=== PATIENT | male | born 1960 | race Caucasian/White ===

== ENCOUNTER 2021-06-12 13:07 | Emergency (ER) | payer BC ==
[~2021-06-12] VITALS: Ht 188 cm; Wt 81.4 kg
--- NOTE | 2021-06-12 13:52 | PHYS DOC ---
Past History Additional Past Medical Histor: LUMBAR BACK ISSUES Past Surgical History: Other Additional Past Surgical Histo: LOWER BACK, BILATERAL ELBOW, LEFT SHOULDER General Adult EDM: Chief Complaint: LOWER BACK PAIN OR INJURY HPI: HPI: Patient is a 61-year-old male who presents to the ER today for lumbar back pain that started this morning. Patient reports he was swinging a baseball bat yesterday and he was riding on a 4 luciano day before he is unsure if he strained his back or injured his back. Patient rates his pain 10 out of 10. He reports that it radiates down to his bilateral legs and to his knees. Patient had no treatment prior to arrival. Patient does have a history of chronic low back pain. Patient denies loss of bowel/bladder, saddle anesthesias, numbness and tingling in extremities. Patient is able to bear weight and ambulate with steady gait. Review of Systems: Review of Systems: 14 body systems of the review of systems have been reviewed. See HPI for pertinent positive and negative responses, otherwise all other systems are negative, nonpertinent or noncontributory Current Medications: Current Meds: Current Medications Medications (Trade) Dose Ordered Sig/Didier Start Time Stop Time Status Last Admin Dose Admin Cyclobenzaprine HCl (Flexeril) 10 mg 1X ONCE 06/12/21 14:00 06/12/21 14:01 UNV Ketorolac Tromethamine (Toradol Im) 60 mg 1X ONCE 06/12/21 14:00 06/12/21 14:01 UNV Allergies: Allergies: Allergies Coded Allergies Type Severity Reaction Last Updated Verified No Known Drug Allergies 06/12/21 No Physical Exam: PE: Constitutional: Well developed, well nourished, no acute distress, non-toxic appearance. [] HENT: Normocephalic, atraumatic Eyes: PERRL, conjunctiva normal, no discharge. [] Neck: Normal range of motion, no bony spinal tenderness, supple, no stridor. [] Cardiovascular: Normal peripheral perfusion Lungs & Thorax: Normal work of breathing, no tachypnea Abdomen: Bowel sounds normal, soft, no tenderness, no masses, no pulsatile masses. [] Skin: Warm, dry, no erythema, no rash. [] Back: No bony spinal tenderness, normal range of motion, positive left straight leg raise, bilateral lumbar paraspinal tenderness with palpation Extremities: No tenderness, no cyanosis, no clubbing, ROM intact, no edema. [] Neurologic: Alert and oriented X 3, normal motor function, normal sensory function, no focal deficits noted. [] Psychologic: Affect normal, judgement normal, mood normal. [] Current Patient Data: Vital Signs: Vital Signs Date Time Temp Pulse Resp B/P (MAP) Pulse Ox O2 Delivery O2 Flow Rate FiO2 06/12/21 13:20 98.4 79 20 112/78 97 Room Air EKG: EKG: [] Radiology/Procedures: Radiology/Procedures: PROCEDURE: LUMBAR SPINE 2-3V XR LUMBAR SPINE 2-3V History: Reason: low back pain / Spl. Instructions: / History: Technique: 3 views lumbar spine. Comparison: None. Findings: Anterior stabilization and interbody fusion L5-S1. Normal vertebral body height and alignment. No acute fracture. Degenerative disc changes most prominent L3-L4 and L4-5. Vascular calcifications. Impression: 1. No acute osseous abnormality. 2. Postoperative changes L5-S1. Electronically signed by: Cristopher Lozano DO (06/12/2021 3:01 PM) [id number] DICTATED AND SIGNED BY: CRISTOPHER LOZANO DO DATE: 06/12/21 1500 CC: EMERGENCY,DEPARTMENT; EMILY [employer]IRE[employer]NER ~MTH0 0 Heart Score: C/O Chest Pain: No Risk Factors: Risk Factors: DM, Current or recent (<one month) smoker, HTN, HLP, family history of CAD, obesity. Risk Scores: Score 0 - 3: 2.5% MACE over next 6 weeks - Discharge Home Score 4 - 6: 20.3% MACE over next 6 weeks - Admit for Clinical Observation Score 7 - 10: 72.7% MACE over next 6 weeks - Early Invasive Strategies Course & Med Decision Making: Course & Med Decision Making Pertinent Labs and Imaging studies reviewed. (See chart for details) Patient is a 61-year-old male being seen in the ER for lumbar back pain that started today. Imaging was performed of his lumbar spine in the ER and was negative for any acute findings. Patient does have a history of chronic low back pain. Patient's pain treated in the ER. Patient reports that his pain has been relieved after treatment in the ER. I discussed with patient all findings and diagnostic testing as well as the need to follow-up with PCP for further evaluation and treatment or return to the ER if any new or worsening symptoms. Strict return precautions were also discussed at length. Patient voiced understanding and agreement with the plan. Patient is hemodynamically stable at the time of disposition. Chris Disclaimer: Chris Disclaimer: This electronic medical record was generated, in whole or in part, using a voice recognition dictation system. Departure Departure: Impression: Primary Impression: Low back pain Qualified Codes: M54.41 - Lumbago with sciatica, right side Disposition: HOME / SELF CARE / HOMELESS Condition: GOOD Patient Instructions: Back Exercises, [id number], Back Pain, Adult Additional Instructions: You were seen in the ER today for low back pain. The images of your x-ray were negative for any acute findings. Your pain is most likely due to a muscle strain and should improve with ibuprofen, stretching, and activity which does not improve you should follow up with your primary care doctor. You can take Tylenol/ibuprofen for pain. You were prescribed a prescription for a muscle relaxer. Please take this as directed. This medication may cause drowsiness of caution taking it. Please not take this medication when you need to be alert and do not take with alcohol. You should return to the ER if you develop worsening pain, fever, numbness, tingling, weakness, bowel or bladder problems, or any new or concerning symptoms. EMERGENCY DEPARTMENT GENERAL DISCHARGE INSTRUCTIONS Thank you for coming to [facility] (ED) today and trusting us with you care. We trust that you had a positivie experience in our Emergency Department. If you wish to speak to the department management, you may call the director at [phone]. YOUR FOLLOW UP INSTRUCTIONS ARE FOLLOWS: 1. Do you have a private Doctor? If you do not have a private doctor, please ask for a resource list of physicians or clinics that may be able to assist you with follow up care. 2. The Emergency Physician has interpreted your x-rays. The X-Ray specialist will also review them. If there is a change in the findings, you will be notified in 48 hours when at all possible. 3. A lab test or culture has been done, your results will be reviewed and you will be notified if you need a change in treatment. ADDITIONAL INSTRUCTIONS AND INFORMATION: 1. Your care today has been supervised by a physician who is specially trained in emergency care. Many problems require more than one evaluation for a complete diagnosis and treatment. We recommend that you schedule your follow up appointment as recommended to ensure complete treatment of you illness or injury. If you are unable to obtain follow up care and continue to have a problem, or if your condition worsens, we recommend that you return to the ED. 2. We are not able to safely determine your condition over the phone nor are we able to give sound medical advice over the phone. For these safety reasons, if you call for medical advice we will ask you to come to the ED for further evaluation. 3. If you have any questions regarding these discharge instructions please call the ED at [phone]. SAFETY INFORMATION: In the interest of safety, wellness, and injury prevention; we encourage you to wear your sealbelt, if you smoke; quite smoking, and we encourage family to use a protective helmet for bicycling and other sporting events that present an increased risk for head injury. IF YOUR SYMPTOMS WORSEN OR NEW SYMPTOMS DEVELOP, OR YOU HAVE CONCERNS ABOUT YOUR CONDITION; OR IF YOUR CONDITION WORSENS WHILE YOU ARE WAITING FOR YOUR FOLLOW UP APPOINTMENT; EITHER CONTACT YOUR PRIMARY CARE DOCTOR, THE PHYSICIAN WHOSE NAME AND NUMBER YOU WERE GIVEN, OR RETURN TO THE ED IMMEDIATELY. Scripts Cyclobenzaprine Hcl (CYCLOBENZAPRINE HCL) 5 Mg Tablet 1 TAB PO TID for back pain for 5 Days, #15 TAB 0 Refills Prov: EMILY GRANT APRN 06/12/21 EMILY GRANT APRN Jun 12, 2021 13:52
[2021-06-12] MEDS ORDERED: CYCLOBENZAPRINE 10 MG TABLET. PO ONE (14:00)
[2021-06-12] MEDS ORDERED: KETOROLAC 60 MG/2 ML VIAL. IM ONE (14:00)
--- NOTE | 2021-06-12 15:04 | RAD ---
XR LUMBAR SPINE 2-3V History: Reason: low back pain / Spl. Instructions: / History: Technique: 3 views lumbar spine. Comparison: None. Findings: Anterior stabilization and interbody fusion L5-S1. Normal vertebral body height and alignment. No acu te fracture. Degenerative disc changes most prominent L3-L4 and L4-5. Vascular calcifications. Impression: 1. No acute osseous abnormality. 2. Postoperative changes L5-S1. Electronically signed by: Cristopher Fonseca DO (06/12/2021 3:01 PM) [id number]
[2021-06-12] MEDS ORDERED: CYCL5TAB PO (15:34)
[2021-06-12 15:45] VITALS: BP 155/70
== END 2021-06-12 16:11 | disposition home or self-care (01) ==
LOC: ER 13:07
DX: M54.41 Lumbago with sciatica, right side (principal)
CPT/HCPCS: 72100; 96372; 99283; J1885

== ENCOUNTER 2021-06-16 22:23 | Emergency (ER) | payer BC ==
[~2021-06-16] VITALS: Ht 188 cm; Wt 81.4 kg
[~2021-06-16 22:23] MED LIST: CYCL5TAB PO
[2021-06-16] MEDS ORDERED: IV NORMAL SALINE 1,000ML 1,000 ML IV ONE (22:30)
--- NOTE | 2021-06-16 22:53 | PHYS DOC ---
Past History Additional Past Medical Histor: LUMBAR BACK ISSUES Past Surgical History: Other Additional Past Surgical Histo: LOWER BACK, BILATERAL ELBOW, LEFT SHOULDER Alcohol Use: None General Adult HPI: HPI: Patient is a 61-year-old male who presents with shortness of breath, cough, wheezing, and fever. Patient states his daughter is also sick with same symptom s. Patient denies taking anything at home for symptoms. Patient denies nausea/vomiting/diarrhea. patient denies medical history. Review of Systems: Review of Systems: Constitutional: Reports fever and chills Eyes: Denies change in visual acuity HENT: Denies nasal congestion or sore throat Respiratory: Reports cough or shortness of breath Cardiovascular: Denies chest pain or edema GI: Denies abdominal pain, nausea, vomiting, bloody stools or diarrhea : Denies dysuria Musculoskeletal: Denies back pain or joint pain Integument: Denies rash Neurologic: Denies headache, focal weakness or sensory changes Endocrine: Denies polyuria or polydipsia Lymphatic: Denies swollen glands Psychiatric: Denies depression or anxiety Current Medications: Current Meds: Current Medications Medications (Trade) Dose Ordered Sig/Didier Start Time Stop Time Status Last Admin Dose Admin Sodium Chloride 1,000 ml @ 1,000 mls/hr 1X ONCE 06/16/21 22:30 06/16/21 23:29 Allergies: Allergies: Allergies Coded Allergies Type Severity Reaction Last Updated Verified No Known Drug Allergies 06/12/21 No Physical Exam: PE: Constitutional: Well developed, well nourished, no acute distress, non-toxic appearance. [] HENT: Normocephalic, atraumatic, bilateral external ears normal, oropharynx moist, no oral exudates, nose normal. [] Eyes: PERRLA, EOMI, conjunctiva normal, no discharge. [] Neck: Normal range of motion, no tenderness, supple, no stridor. [] Cardiovascular:Heart rate regular rhythm, no murmur [] Lungs & Thorax: Wheezing heard throughout Abdomen: Bowel sounds normal, soft, no tenderness, no masses, no pulsatile masses. [] Skin: Warm, dry, no erythema, no rash. [] Back: No tenderness, no CVA tenderness. [] Extremities: No tenderness, no cyanosis, no clubbing, ROM intact, no edema. [] Neurologic: Alert and oriented X 3, normal motor function, normal sensory function, no focal deficits noted. [] Psychologic: Anxious EKG: EKG: [] Radiology/Procedures: Radiology/Procedures: []Exam: Chest one view INDICATION: Cough, short of air TECHNIQUE: Frontal view of the chest Comparisons: None FINDINGS: The cardiomediastinal silhouette and pulmonary vessels are within normal limits. The lung and pleural spaces are clear. IMPRESSION: 1. No acute cardiopulmonary process. 2. Images are likely labeled incorrectly with the right left mismatch. Correlate with history. Electronically signed by: Samuel Fong MD (06/16/2021 10:57 PM) [facility] Heart Score: C/O Chest Pain: No Risk Factors: Risk Factors: DM, Current or recent (<one month) smoker, HTN, HLP, family history of CAD, obesity. Risk Scores: Score 0 - 3: 2.5% MACE over next 6 weeks - Discharge Home Score 4 - 6: 20.3% MACE over next 6 weeks - Admit for Clinical Observation Score 7 - 10: 72.7% MACE over next 6 weeks - Early Invasive Strategies Course & Med Decision Making: Course & Med Decision Making Pertinent Labs and Imaging studies reviewed. (See chart for details) [] 61-year-old male who presents with shortness of breath, cough, wheezing and a fever. Patient states that he has been running 102 fever all day. Patient also reports that his daughter is also sick with the same symptoms. Daughter was tested for Covid today but is not received results yet. Denies taking anything for fever. Patient is afebrile on arrival. Hemodynamically stable. O2 saturation 97% room air. 600 mg Motrin given. 1 L NS bolus given. Albuterol inhaler given. 10 mg d examethasone. Patient report given to Dr. Dougherty at 2331. Still waiting on lab results. Chris Disclaimer: Chris Disclaimer: This electronic medical record was generated, in whole or in part, using a voice recognition dictation system. Departure Departure: Impression: Primary Impression: Fever Qualified Codes: R50.9 - Fever, unspecified Additional Impressions: Cough Person under investigation for COVID-19 Disposition: HOME / SELF CARE / HOMELESS Condition: STABLE Referrals: FLYNN CORBIN MD (PCP) ANDRES NIELSEN APRN Jun 16, 2021 22:53
--- NOTE | 2021-06-16 22:59 | RAD ---
Exam: Chest one view INDICATION: Cough, short of air TECHNIQUE: Frontal view of the chest Comparisons: None FINDINGS: The cardiomediastinal silhouette and pulmonary vessels are within normal limits. The lung and pleural spaces are clear. IMPRESSION: 1. No acute cardiopulmonary process. 2. Images are likely labeled incorrectly with the right left mismatch. Correlate with history. Electronically signed by: Samuel Fong MD (06/16/2021 10:57 PM) [facility]
[2021-06-16] MEDS ORDERED: IBUPROFEN 600 MG TABLET. PO ONE (23:00)
[2021-06-16] MEDS ORDERED: DEXAMETHASONE SOD PHOS 10 MG/ML VIAL. IV ONE (23:00)
[2021-06-16] MEDS ORDERED: ALBUTEROL SULFATE 8GM INHALER. INH ONE (23:00)
[2021-06-17 00:11] VITALS: BP 123/69
--- NOTE | 2021-06-17 05:44 | EKG ---
[address] [address] Test Date: 2021-06-16 Test Time: 23:41:18 Pat Name: YOVANY BHATTI Department: Room: Gender: M Radio Frequency Design Engineer: : [id number] Requested By: ANDRES NIELSEN Order Number: [id number] Reading MD: Measurements Intervals [place] Rate: 81 P: 62 SD: 172 QRS: 69 QRSD: 106 T: 62 QT: 348 QTc: 409 Interpretive Statements SINUS RHYTHM NORMAL ECG RI6.02 No previous ECG available for comparison
[2021-06-17] MEDS ORDERED: DEXAMETHASONE SOD PHOS 10 MG/ML VIAL. PO ONE (06:45)
--- NOTE | 2021-06-19 10:48 | NUR ---
IP: Attempted to contact pt concerning covid results. No answer, left a voicemail to return the call.
--- NOTE | 2021-06-19 13:58 | NUR ---
IP: Pt reurned my call. Informed pt of positive covid test and the need to quarantine for 10 days. Pt verbalized understanding.
== END 2021-06-17 00:35 | disposition home or self-care (01) ==
LOC: ER 22:23
DX: U07.1 COVID-19 (principal)
CPT/HCPCS: 71045; 93005; 94640; 99285; J1100; U0005; U0003; 94664